=== PATIENT | female | born 1960 | race Caucasian/White ===

== ENCOUNTER → 2021-12-13 | Day surgery (SDC) | payer OTHER ==
[~2021-12-13] MED LIST: BUPIVACAINE MPF 0.25% 10 ML VIAL. ONE; DULO40CA2 PO; FURO80TA3 PO; IOHEXOL 300 MG/ML 50 ML VIAL. ONE; LEVO88TA4 PO; LIDOCAINE 1% PF 30 ML VIAL. ONE; OXYC5TAB4 PO; POTA-121 PO; ROPI4TAB6 PO; methylPREDNISolone ACETATE 80 MG/ML VIAL. ONE
[2021-12-13 12:54] VITALS: BP 121/54
== END | disposition home or self-care (01) ==
LOC: SURG 11:50
PROVIDERS: ATTEND Anesthesiology
DX: M46.1 Sacroiliitis, not elsewhere classified (principal); Z88.2 Allergy status to sulfonamides; Z98.890 Other specified postprocedural states; Z79.899 Other long term (current) drug therapy
CPT/HCPCS: 27096; A4209; A4657; A4930; J1040; J3490; Q9967; G0260